=== PATIENT | male | born 1955 | race Caucasian/White ===

== ENCOUNTER → 2017-02-04 | Outpatient (CLI) | payer OTHER ==
[~2017-02-04] MED LIST: ALBUTEROL17 GM INH; ALTACE2.5 MG PO; PRILOSEC PO; PROSTATE HEALT1 EAC1 PO; [UNRECOGNIZED DRUG - REMARK] PO
--- NOTE | ~2017-02-04 | MU ---
Unit #: [id number] #: [id number] Patient: LIONEL ODONNELL [id number] [address] [address] [id number] O MR#: [id number] NAME: LIONEL ODONNELL : 1955 SEX: M STUDY DATE/TIME: 02/04/2017 UNIT: CN ROOM: STUDY DESCRIPTION: MUGA Scan Attending Physician: Aury Anton M.D. Referring Physician: Aury Anton M.D. Primary Care Physician: Carisa Fair M.D. CARDIOLOGY REPORT EXAM MUGA Scan PROCEDURE 30.0 mCi of technetium 99m labeled RBCs was injected. Images were obtained in left lateral, left anterior oblique and anteroposterior views. The left ventricular ejection fraction is calculated to be 42% by MUGA scan. CONCLUSION The left ventricular ejection fraction is calculated to be 42% by MUGA scan. Dictated by... Gisele Rangel TD: 02/05/2017 06:51 JOB #: [id number] CARDIOLOGY REPORT Page 1 of 1 X Aury Anton MD <ELECTRONICALLY SIGNED> 03/18/17 1524 CARDIOLOGY REPORT
== END | disposition home or self-care (01) ==
LOC: CNUC 12:56
DX: I42.8 Other cardiomyopathies (principal); I50.22 Chronic systolic (congestive) heart failure
CPT/HCPCS: 78472; A9560